=== PATIENT | female | born 1985 | race Caucasian/White ===

== ENCOUNTER 2025-04-13 12:21 | Emergency (ER) | payer MEDICAID ==
[~2025-04-13] VITALS: Ht 165.1 cm; Wt 70.5 kg
[2025-04-13 12:31] VITALS: TEMP 98.1
[2025-04-13] MEDS: SULFAMETHOX/TRIMETH DS 800-160 MG/TABLET PO ONE (16:17)
[2025-04-13] MEDS: CEPHALEXIN MONOHYDRATE 500 MG CAPSULE PO ONE (16:17)
[2025-04-13] MEDS ORDERED: CEPH-558 PO (16:42)
[2025-04-13] MEDS ORDERED: SULF1TAB94 PO (16:42)
[2025-04-13] MEDS ORDERED: PERCT PO (16:43)
[2025-04-13 16:45] VITALS: BP 120/80; PULSE 70; RESP 16; O2SAT 100
== END 2025-04-13 17:06 | disposition home or self-care (01) ==
LOC: EMS 12:21
DX: L03.313 Cellulitis of chest wall (principal)
CPT/HCPCS: 99283